=== PATIENT | female | born 1990 | race Caucasian/White ===

== ENCOUNTER → 2016-05-24 | Outpatient (CLI) | payer OTHER ==
[~2016-05-24] MED LIST: COLACE 100MG C100 MG PO; IBUPROFEN600 MG PO; NORCO 5-325 TA1 EACH PO
== END ==
LOC: RAD 11:32
DX: O26.891 Other specified pregnancy related conditions, first trimester (principal); T83.32XA Displacement of intrauterine contraceptive device, initial encounter; Z3A.01 Less than 8 weeks gestation of pregnancy
CPT/HCPCS: 74000